=== PATIENT | male | born 1960 | race Caucasian/White ===

== ENCOUNTER 2018-06-16 00:16 | Observation (INO) ==
--- NOTE | 2018-06-16 00:32 | Emergency Department Note ---
Disposition Clinical Impression: Sedated due to medication Disposition: Admitted As Inpatient Condition: Fair Referrals: NONE,PCP [Primary Care Provider] - Forms: ED Satisfaction Letter, Work/School Release Altered Mental Status HPI - General Chief Complaint: ED General Medical Stated Complaint: responsive only to painful stimuli Time Seen by Provider: 06/16/18 00:17 Source: patient, EMS Mode of arrival: EMS Limitations: altered mental status Nursing Notes Reviewed: Yes Vital Signs Reviewed: Yes - History of Present Illness HPI Narrative: Patient presents to the ED via EMS with decreased level of responsiveness. Per EMS he was found unresponsive by his family lying on his right side on the floor next to the bed. They state that he had his pants only on one leg and a T-shirt on. states things were knocked over on the bedside table but there is no signs of injury found on the patient. EMS reports they rolled him from his right side onto his back and his snoring respirations and his color improved but they could not get him to respond anything other than a deep sternal rub. He was given 4 mg of Narcan intranasally with no significant response any also was exposed to ammonia capsule with only minimal response. They report his pupils were unreactive at 4 mm initially. They could not get the patient to follow commands to do a stroke scale or other additional exam or testing but report patient did seem to become more responsive during transport and would mumble and move when he was touched. Glucose was 121. They started an IV and started an IV fluid bolus. Vital signs have been stable throughout transport. On arrival patient did respond to tactile stimuli. He denied any pain or complaints to me. He denied taking any drugs. He was witnessed to have purposeful movements of all extremities. - Related Data Home Medications Medication Instructions Recorded Confirmed Gabapentin [Gralise] 600 mg PO HS 09/01/16 12/03/17 Levomilnacipran HCl [Fetzima] 40 mg PO DAILY 09/01/16 12/03/17 Levothyroxine Sodium 200 mcg PO DAILY 09/01/16 12/03/17 Melatonin 10 mg PO HS 09/01/16 12/03/17 Naproxen [EC-Naprosyn] 500 mg PO BID 09/01/16 12/03/17 Omeprazole 20 mg PO DAILY 09/01/16 12/03/17 Propranolol HCl 20 mg PO BID 09/01/16 12/03/17 Quetiapine Fumarate [SEROquel] 400 mg PO HS 09/01/16 12/03/17 SUMAtriptan Succinate [Imitrex] 50 mg PO PRN PRN 09/01/16 12/03/17 Temazepam [Restoril] 30 mg PO HS 09/01/16 12/03/17 Tramadol HCl [Ultram] 50 mg PO TID PRN 09/01/16 12/03/17 Zolpidem Tartrate 10 mg PO DAILY 09/01/16 12/03/17 Allergies Allergy/AdvReac Type Severity Reaction Status Date / Time No Known Allergies Allergy Verified 12/03/17 15:41 Limitations: ROS unobtainable due to patients medical condition Past Medical History - Past Medical History Medical history: Reports: non-contributory Psychiatric history: Reports: no psych history - Social History Smoking Status: Never smoker Smokeless Tobacco Status: No Alcohol use: Reports: unknown Drug use: Reports: unknown Physical Exam - General Limitations: altered mental status General appearance: obtunded (slow to respond but does follow commands) - Head Head exam: atraumatic, normocephalic, normal inspection - Eye Eye exam: Present: normal appearance, PERRL, EOMI - ENT ENT exam: normal exam, normal oropharynx, mucous membranes moist, TM's normal bilaterally - Neck Neck exam: Present: normal inspection, trachea midline - Chest Chest inspection: Present: normal inspection, symmetric chest wall rise - Respiratory Respiratory exam: Present: normal lung sounds bilaterally. Absent: respiratory distress - Cardiovascular Cardiovascular exam: Present: regular rate, normal rhythm, normal heart sounds - Abdominal Exam Abdominal exam: Present: soft, Non-Tender. Absent: tenderness, distention, guarding, rebound, rigidity - Extremities Exam Extremities exam: Present: normal inspection, full ROM, normal capillary refill. Absent: tenderness, pedal edema - Neurological Exam Neurological exam: Present: alert, CN II-XII intact. Absent: motor sensory deficit - Expanded Neurological Exam Patient oriented to: Present: person, place Motor strength - LUE: 5/5 Motor strength - RUE: 5/5 Motor strength - LLE: 5/5 Motor strength - RLE: 5/5 Coma Scale Eye Opening: To Voice Coma Scale Motor Response: Obeys Commands Coma Scale Verbal Response: Confused Coma Scale Total: 13 - Psychiatric Psychiatric exam: Present: normal affect, normal mood - Skin Skin exam: Present: warm, dry, intact, normal color Course Course Narrative: Patient presents to the ED with decreased level of unresponsiveness after being found on the floor by his at home. On arrival he does respond to verbal stimuli, will follow simple commands and moves all extremities. Patient is slow to answer questions and appears sedated or drowsy. There is no focal neurologic deficits obvious on exam and vital signs are within normal limits. Will obtain routine lab work, EKG, chest x-ray and head CT as it is unclear whether he may have struck his head or possibly had an acute neurologic event causing him to collapse. I spoke to patient's who states that he was behaving normally throughout the day. He went to his group session at [facility] which she participates in for his history of depression. She states that this evening he had gotten up and gone to bed. She went into the bedroom later to show him some pictures on her phone and he was sitting on the side of the bed but just mumbled when she tried to talk to them. She left the room and states when she went back about 25 minutes later to go to bed herself she found the patient on the floor next to the bed. States she tried to get him up but was not strong enough to get him up on her own and he fell back to the floor. He was breathing but she could not get him to respond to her further and so she called EMS. She states he has not been recently ill. He does not drink, smoke or use drugs to her knowledge. She states he does take naproxen to help him sleep. She does not know any of his regular medications and does not attend his doctor's appointments. She does know that he takes thyroid medication and has high blood pressure. He is not a diabetic to her knowledge. - Reevaluation(s) Reevaluation #1: Laboratory studies are unremarkable including CBC, BMP and troponin. Urinalysis is normal. Urine drug screen is only positive for benzodiazepines. Chest x- ray and head CT were both normal as well. On my reassessment patient opens his eyes to voice and he answers questions properly although he is a little slow to produce his answers. Speech is clear. He has no focal neurologic deficits but does still appear to be rather sedated. He is oriented to name, place and date. He did initially tell me Obama was the president but when I questioned him again he corrected himself to Trump. He does admit to taking more melatonin than usual tonight to try to help himself sleep. He denies any attempts of rena ellis to hurt himself. He does have Restoril on his medication list but he denies taking any more this than usual this evening. He denies any numbness, tingling or weakness anywhere or other complaints, only states he is very tired. Given the patient is still somewhat sedated I feel that he requires continued monitoring until he fully returns to a normal baseline. Patient and family are in agreement with this. I then spoke to the hospitalist client relations specialist, Dr. Hughes, who agreed to accept the patient. Time: 01:52 Vital Signs Temperature 97.2 F L 06/16/18 00:22 Pulse Rate 82 06/16/18 00:22 Respiratory Rate 16 06/16/18 00:22 Blood Pressure 100/74 06/16/18 00:22 O2 Sat by Pulse Oximetry 94 06/16/18 00:22 Temperature 97.2 F L 06/16/18 00:22 Pulse Rate 81 06/16/18 01:04 Respiratory Rate 17 06/16/18 01:04 Blood Pressure 101/76 06/16/18 01:04 O2 Sat by Pulse Oximetry 98 06/16/18 01:04 Oxygen Delivery Oxygen Delivery Room Air Altered Mental Status - Differential Diagnosis Likely: alcoholic intoxication, altered mental status, substance use - Medical Records Medical records reviewed: Yes I reviewed the patient's medical records. - Lab Data Lab results reviewed: Yes I reviewed the patient's lab results. Result diagrams: 06/16/18 00:42 06/16/18 00:42 Lab Results 06/16/18 06/16/18 06/16/18 Range/Units 00:37 00:37 00:42 WBC 9.2 (4.3-11.1) K/mcL RBC 3.65 L (4.19-5.50) M/mcL Hgb 11.5 L (12.9-16.9) g/dL Hct 33.3 L (37.5-50.1) % MCV 91.2 (83.0-100.0) fL MCH 31.5 (28.0-33.3) pg MCHC 34.5 (31.6-35.5) g/dL RDW 12.2 (11.5-14.5) % Plt Count 188 (140-400) K/mcL MPV 9.5 (9.4-12.4) fL Immature Gran % 0.3 (0-4) % Seg Neutrophils % 71.1 % Lymphocytes % 16.8 % Monocytes % 7.7 % Eosinophils % 3.7 % Basophils % 0.4 % Neutrophils # 6.5 (1.6-8.9) K/mcL Lymphocytes # 1.6 (0.6-4.6) K/mcL Monocytes # 0.7 (0.0-1.3) K/mcL Eosinophils # 0.3 (0.0-0.6) K/mcL Basophils # 0.0 (0.0-0.2) K/mcL PT (9.4-12.1) Seconds INR APTT (26.0-36.0) Seconds Sodium (136-145) mEq/L Potassium (3.5-5.1) mEq/L Chloride (98-107) mEq/L Carbon Dioxide (23-29) mEq/L BUN (6-20) mg/dL Creatinine (0.70-1.30) mg/dL Est GFR ( Amer) (> 60) Est GFR (Non-Af Amer) (> 60) BUN/Creatinine Ratio (6-26) Glucose (70-105) mg/dL Calculated Osmolality (280-300) Calcium (8.6-10.3) mg/dL Total Bilirubin (0.3-1.0) mg/dL Direct Bilirubin (0.0-0.2) mg/dL Indirect Bilirubin (0.0-1.2) mg/dL AST (13-39) Units/L ALT (7-52) Units/L Alkaline Phosphatase (34-104) Units/L Troponin I (< 0.04) ng/mL Serum Total Protein (6.4-8.9) g/dL Albumin (3.5-5.7) g/dL Globulin (2.4-3.5) g/dL Albumin/Globulin Ratio (1.1-2.2) TSH (0.340-5.600) mcIU/mL Urine Color Yellow (Yellow) Urine Clarity Clear (Clear) Urine pH 5.5 (5.0-8.0) pH Units Ur Specific [place] >= 1.030 H (1.010-1.025) Urine Protein Negative (Neg-Trace) mg/dL Urine Glucose (UA) Normal (Normal) mg/dL Urine Ketones Negative (Negative) mg/dL Urine Blood Negative (Negative) Urine Nitrite Negative (Negative) Urine Bilirubin Negative (Negative) Urine Urobilinogen Normal (Normal) mg/dL Ur Leukocyte Esterase Negative (Negative) Ur Culture Indicated? NO (NO) Urine Opiates Screen Negative (Wbrbmj=425) ng/mL Ur Oxycodone Screen Negative (Cutoff= 100) ng/mL Ur Barbiturates Screen Negative (Qqlxiz=094) ng/mL Ur Phencyclidine Scrn Negative (Cutoff=25) ng/mL Ur Amphetamines Screen Negative (Hlcifs=5675) ng/mL U Benzodiazepines Scrn Positive H (Cvfqrm=006) ng/mL Urine Cocaine Screen Negative (Cutoff= 300) ng/mL U Marijuana (THC) Screen Negative (Cutoff = 50) ng/mL Ur Drug Screen Interp See Below Ethyl Alcohol (Less than 10) mg/dL 06/16/18 06/16/18 Range/Units 00:42 00:42 WBC (4.3-11.1) K/mcL RBC (4.19-5.50) M/mcL Hgb (12.9-16.9) g/dL Hct (37.5-50.1) % MCV (83.0-100.0) fL MCH (28.0-33.3) pg MCHC (31.6-35.5) g/dL RDW (11.5-14.5) % Plt Count (140-400) K/mcL MPV (9.4-12.4) fL Immature Gran % (0-4) % Seg Neutrophils % % Lymphocytes % % Monocytes % % Eosinophils % % Basophils % % Neutrophils # (1.6-8.9) K/mcL Lymphocytes # (0.6-4.6) K/mcL Monocytes # (0.0-1.3) K/mcL Eosinophils # (0.0-0.6) K/mcL Basophils # (0.0-0.2) K/mcL PT 12.1 (9.4-12.1) Seconds INR 1.1 APTT 31.5 (26.0-36.0) Seconds Sodium 136 (136-145) mEq/L Potassium 4.4 (3.5-5.1) mEq/L Chloride 106 (98-107) mEq/L Carbon Dioxide 23 (23-29) mEq/L BUN 22 H (6-20) mg/dL Creatinine 1.27 (0.70-1.30) mg/dL Est GFR ( Amer) > 60 (> 60) Est GFR (Non-Af Amer) 58 L (> 60) BUN/Creatinine Ratio 17 (6-26) Glucose 107 H (70-105) mg/dL Calculated Osmolality 286 (280-300) Calcium 8.9 (8.6-10.3) mg/dL Total Bilirubin 0.4 (0.3-1.0) mg/dL Direct Bilirubin 0.1 (0.0-0.2) mg/dL Indirect Bilirubin 0.3 (0.0-1.2) mg/dL AST 17 (13-39) Units/L ALT 17 (7-52) Units/L Alkaline Phosphatase 121 H (34-104) Units/L Troponin I < 0.03 (< 0.04) ng/mL Serum Total Protein 6.3 L (6.4-8.9) g/dL Albumin 3.6 (3.5-5.7) g/dL Globulin 2.7 (2.4-3.5) g/dL Albumin/Globulin Ratio 1.3 (1.1-2.2) TSH 32.022 H (0.340-5.600) mcIU/mL Urine Color (Yellow) Urine Clarity (Clear) Urine pH (5.0-8.0) pH Units Ur Specific [place] (1.010-1.025) Urine Protein (Neg-Trace) mg/dL Urine Glucose (UA) (Normal) mg/dL Urine Ketones (Negative) mg/dL Urine Blood (Negative) Urine Nitrite (Negative) Urine Bilirubin (Negative) Urine Urobilinogen (Normal) mg/dL Ur Leukocyte Esterase (Negative) Ur Culture Indicated? (NO) Urine Opiates Screen (Vuqytd=271) ng/mL Ur Oxycodone Screen (Cutoff= 100) ng/mL Ur Barbiturates Screen (Vnuril=708) ng/mL Ur Phencyclidine Scrn (Cutoff=25) ng/mL Ur Amphetamines Screen (Ygeokv=0522) ng/mL U Benzodiazepines Scrn (Pjuiep=223) ng/mL Urine Cocaine Screen (Cutoff= 300) ng/mL U Marijuana (THC) Screen (Cutoff = 50) ng/mL Ur Drug Screen Interp Ethyl Alcohol < 10 (Less than 10) mg/dL - Radiology Data Radiology results reviewed: Yes I reviewed the patient's radiology results. ITS Impressions Chest X-Ray 06/16/18 00:33 IMPRESSION: No acute cardiopulmonary findings. Shallow inspiratory effort with basilar atelectasis. Gas-filled loops of bowel partially imaged. Consider abdominal series radiographs. D/ / Raghavendra Gómez / Raghavendra Gómez Interpreting Provider: Raghavendra Gómez Head CT 06/16/18 00:33 IMPRESSION: No acute intracranial abnormality. D/ / Raghavendra Gómez / Raghavendra Gómez Interpreting Provider: Raghavendra Gómez - EKG Data EKG shows normal: sinus rhythm Rate: normal Rhythm: NSR [place]/QRS: normal Heart block present: 1st Degree Interpretation: no acute changes TPA Checklist - LKW: 3-4.5 hrs Add. Warnings/Precautions Patient/family understanding: The patient/family members have been counseled and understood the risk, benefit, and alternatives of treatment. Critical Care Time Critical Care Time: Yes Total Critical Care Time: 20 Attestation: The high probability of a clinically significant, sudden or life threatening deterioration of the [neurologic, cardiovascular, respiratory] system(s) required my full and direct attention, intervention and personal management this patient presented initially attended with decreased level of response this requiring immediate assessment, frequent reassessment and evaluation. The a ggregate critical care time was [20] minutes. This time is in addition to time spent performing reported procedures but includes the following: [x] Data Review and interpretation [x] Patient assessment and monitoring of vital signs [x] Documentation [x] Medication orders and management
[2018-06-16 00:49] LABS: Basophils % 0.4 %; Eosinophils # 0.3 K/mcL (0.0-0.6); Eosinophils % 3.7 %; Hematocrit 33.3 % (37.5-50.1); Hemoglobin 11.5 g/dL (12.9-16.9); Immature Granulocytes % 0.3 % (0-4); Lymphocytes # 1.6 K/mcL (0.6-4.6); Lymphocytes % 16.8 %; Mean Corpuscular HGB Conc 34.5 g/dL (31.6-35.5); Mean Corpuscular Hemoglobin 31.5 pg (28.0-33.3); Mean Corpuscular Volume 91.2 fL (83.0-100.0); Mean Platelet Volume 9.5 fL (9.4-12.4); Monocytes # 0.7 K/mcL (0.0-1.3); Monocytes % 7.7 %; Neutrophils # 6.5 K/mcL (1.6-8.9); Platelet Count 188 K/mcL (140-400); Red Blood Count 3.65 M/mcL (4.19-5.50); Red Cell Distribution Width 12.2 % (11.5-14.5); Segmented Neutrophils % 71.1 %
[2018-06-16 00:54] LABS: Bilirubin,Urine Negative (Negative); Blood,Urine Negative (Negative); Clarity,Urine Clear (Clear); Color,Urine Yellow (Yellow); Glucose,Urine (UA) Normal (Normal); Ketones,Urine Negative (Negative); Leukocyte Esterase,Urine Negative (Negative); Nitrite,Urine Negative (Negative); PH,Urine 5.5 pH Units (5.0-8.0); Protein,Urine Negative (Neg-Trace); Specific Gravity,Urine >= 1.030 (1.010-1.025); Urobilinogen,Urine Normal (Normal)
[2018-06-16 00:57] LABS: INR 1.1; Prothrombin Time 12.1 Seconds (9.4-12.1)
[2018-06-16 01:00] LABS: Activated Partial Thrombo Time 31.5 Seconds (26.0-36.0)
[2018-06-16 01:09] LABS: Troponin I < 0.03 ng/mL (< 0.04)
[2018-06-16 01:13] LABS: Amphetamine Screen,Urine Negative ng/mL (Cutoff=1000); Barbiturate Screen,Urine Negative ng/mL (Cutoff=200); Benzodiazepines Screen,Urine Positive ng/mL (Cutoff=200); Cannabinoid Screen,Urine Negative ng/mL (Cutoff = 50); Cocaine Screen,Urine Negative ng/mL (Cutoff= 300); Opiate Screen,Urine Negative ng/mL (Cutoff=300); Phencyclidine Screen,Urine Negative ng/mL (Cutoff=25)
[2018-06-16 01:25] LABS: Alanine Aminotransferase 17 Units/L (7-52); Albumin 3.6 g/dL (3.5-5.7); Albumin/Globulin Ratio 1.3 (1.1-2.2); Alkaline Phosphatase 121 Units/L (34-104); Aspartate Amino Transferase 17 Units/L (13-39); BUN/Creatinine Ratio 17 (6-26); Bilirubin,Direct 0.1 mg/dL (0.0-0.2); Bilirubin,Indirect 0.3 mg/dL (0.0-1.2); Bilirubin,Total 0.4 mg/dL (0.3-1.0); Blood Urea Nitrogen 22 mg/dL (6-20); Calcium 8.9 mg/dL (8.6-10.3); Carbon Dioxide 23 mEq/L (23-29); Chloride 106 mEq/L (98-107); Ethanol < 10 mg/dL (Less than 10); Globulin 2.7 g/dL (2.4-3.5); Glucose 107 mg/dL (70-105); Osmolality,Calculated 286 (280-300); Potassium 4.4 mEq/L (3.5-5.1); Sodium 136 mEq/L (136-145); Thyroid Stimulating Hormone 32.022 mcIU/mL (0.340-5.600); Total Protein 6.3 g/dL (6.4-8.9); eGFR For Non-African Americans 58 (> 60)
[2018-06-16] MEDS ORDERED: Naloxone 0.4 MG/ML INJ IVP PRN ×2 (01:55→02:25)
[2018-06-16] MEDS ORDERED: 0.9 % Sodium Chloride 1,000 ML IVC SCH (02:00)
[2018-06-16] MEDS: 0.9 % Sodium Chloride 1,000 ML IVC SCH ×2 (03:03→16:09)
[2018-06-16] MEDS ORDERED: Temazepam 15 MG CAPSULE PO PRN (15:17)
--- NOTE | 2018-06-16 15:23 | Internal Med History&Physical ---
Date of Encounter: 06/16/18 Time of Encounter: 14:55 Assessment and Plan (1) Syncope Current visit: Yes Status: Acute Etiology uncertain. He will remain on telemetry. Orthostatic vital signs will be done before discharge. Qualifiers: Syncope type: unspecified Qualified Code(s): R55 - Syncope and collapse (2) Anemia Current visit: Yes Status: Acute Anemia testing will be ordered in a.m. Qualifiers: Anemia type: unspecified type Qualified Code(s): D64.9 - Anemia, un specified (3) Azotemia Current visit: Yes Status: Acute He has been on Naprosyn twice a day at home. This will be discontinued. IV fluids will be given and labs rechecked in a.m. (4) Hypothyroidism Current visit: Yes Status: Acute TSH significantly elevated at 32.022. He denies missing Synthroid dose is at home however his home dose is uncertain. He will be given 250 g daily and labs will be monitored. Qualifiers: Hypothyroidism type: unspecified Qualified Code(s): E03.9 - Hypothyroidism, unspecified Internal Medicine - H&P: HPI Chief complaint: Syncope Admitted From: Emergency Dept Plans for Post Hospital Care: Home History of present illness: Mr. Amanda is a 58 year old male who was brought to emergency room after he was found by his lying on the floor beside his bed at home approximately 10:20 PM. He does not recall the fall from the bed to the floor. He denies significant injury. He was brought to emergency room and evaluated and admitted to [facility] for ongoing care needs. He is a fair historian and does not remember some details of his history. He states he has had occasional episodes of near syncope but does not recall the most recent one. He denies large distribution strokes or seizures. Cardiovascular history is pertinent for hypertension. He denies NE heart failure angina DVT or pulmonary embolus. Past Med Surg Social Fam HX - Past Medical History Medical history: non-contributory Additional medical history: insomnia Psychiatric history: no psych history - Past Surgical History Surgical History: orthopedic, other - Social History Smoking Status: Never smoker Smokeless Tobacco Status: No Alcohol use: none Drug use: none - Family History Father Hx Family Cardiac Disorders: Yes Hx Family Respiratory Disorders: Yes Internal Medicine - H&P: Meds Gabapentin [Gralise] 600 mg PO HS 09/01/16 [History] Levomilnacipran HCl [Fetzima] 40 mg PO DAILY 09/01/16 [History] Levothyroxine Sodium 200 mcg PO DAILY 09/01/16 [History] Melatonin 10 mg PO HS 09/01/16 [History] Naproxen [EC-Naprosyn] 500 mg PO BID 09/01/16 [History] Omeprazole 20 mg PO DAILY 09/01/16 [History] Propranolol HCl 20 mg PO BID 09/01/16 [History] Quetiapine Fumarate [SEROquel] 400 mg PO HS 09/01/16 [History] SUMAtriptan Succinate [Imitrex] 50 mg PO PRN PRN 09/01/16 [History] Temazepam [Restoril] 30 mg PO HS 09/01/16 [History] Allergy/AdvReac Type Severity Reaction Status Date / Time No Known Allergies Allergy Verified 12/03/17 15:41 All Systems PM: A 10-system review of systems was performed and is negative for pertinent findings except as documented above in the HPI. Review of systems: Gen.: He states his weight has been stable for several months Cardiovascular: As per history of present illness Respiratory: He is a lifelong nonsmoker denies chronic lung disease GI: He denies disorders of his liver gallbladder or exocrine pancreas : He has had a kidney stone in the past requiring "laser" intervention. He has had occasional UTIs. He denies known chronic kidney disease. Neurologic: He has occasional migraine headaches. He denies large distribution strokes or seizures. Endocrine: He has hypothyroidism. He thinks he has hyperlipidemia but does not know if he is on medication for this. He denies diabetes. Hematology/oncology: He reports being diagnosed with anemia in the past but does not know details. He denies internal malignancies or other blood disorders. Psychiatric: He reports a diagnosis of bipolar disorder. He denies other mental health issues. [place] skeletal: He has had back surgery for degenerative disc disease. He has DJD but denies gout or other bone joint or muscle disorders. - Constitutional Vitals: Temp Pulse Resp BP Pulse Ox 98.4 F 116 18 135/85 99 06/16/18 14:48 06/16/18 14:48 06/16/18 14:48 06/16/18 14:48 06/16/18 14:48 Exam: Gen.: He is a well-developed well-nourished male sitting on the side of bed who appears in no acute distress HEENT: Head is atraumatic and normocephalic. Eyes: EOMI. There is no scleral icterus. Mouth: Mucosa is moist. Neck: Supple and nontender. There is no thyromegaly or adenopathy noted. Heart: Tachycardic with rate approximately 112 minute at rest. No murmurs or gallops are heard. Lungs: No wheezes or crackles are heard. Abdomen: Nontender to palpation. Exam is limited because he is in the seated position. Extremities: His feet are cool to touch. There is slight dependent rubor bilate rally slightly more on the left than the right. There is 0-trace edema present. Neurologic: Mental status: He is talkative and a good historian. Cranial nerves: Smile is symmetric. Forehead wrinkles bilaterally. Tongue protrudes midline. EOMI. Motor: There is no pronator drift. Cerebellar: Finger to nose is intact bilaterally. Skin: Warm and dry Internal Med - H&P Results - Labs CBC & Chem 7: 06/16/18 00:42 06/16/18 00:42 Labs: Short CBC 06/16/18 Range/Units 00:42 WBC 9.2 (4.3-11.1) K/mcL Hgb 11.5 L (12.9-16.9) g/dL Hct 33.3 L (37.5-50.1) % Plt Count 188 (140-400) K/mcL Neutrophils # 6.5 (1.6-8.9) K/mcL BMP 06/16/18 00:42 Sodium 136 Potassium 4.4 Chloride 106 Carbon Dioxide 23 BUN 22 H Creatinine 1.27 Glucose 107 H Calcium 8.9 Cardiac Enzymes 06/16/18 Range/Units 00:42 Troponin I < 0.03 (< 0.04) ng/mL Liver Function 06/16/18 Range/Units 00:42 Total Bilirubin 0.4 (0.3-1.0) mg/dL Direct Bilirubin 0.1 (0.0-0.2) mg/dL AST 17 (13-39) Units/L ALT 17 (7-52) Units/L Alkaline Phosphatase 121 H (34-104) Units/L Albumin 3.6 (3.5-5.7) g/dL Urine 06/16/18 Range/Units 00:37 Urine Color Yellow (Yellow) Urine Clarity Clear (Clear) Urine pH 5.5 (5.0-8.0) pH Units Ur Specific [place] >= 1.030 H (1.010-1.025) Urine Protein Negative (Neg-Trace) mg/dL Urine Glucose (UA) Normal (Normal) mg/dL - Impressions ITS Impressions Chest X-Ray 06/16/18 00:33 IMPRESSION: No acute cardiopulmonary findings. Shallow inspiratory effort with basilar atelectasis. Gas-filled loops of bowel partially imaged. Consider abdominal series radiographs. D/ / Raghavendra Gómez / Raghavendra Gómez Interpreting Provider: Raghavendra Gómez Head CT 06/16/18 00:33 IMPRESSION: No acute intracranial abnormality. D/ / Raghavendra Gómez / Raghavendra Gómez Interpreting Provider: Raghavendra Gómez - VTE Reasons for not Prescribing Prophylaxis: Treatment not Indicated - Low risk for VTE
--- NOTE | 2018-06-16 20:42 | Electrocardiograph Report ---
[place] [id number] Test Date: 2018-06-16 Pat Name: Schuyler Amanda Department: EDP-16 Room: [facility] Gender: M Political Aide: : 1960 Requested By: Betzaida Toth Order Number: [id number] Reading MD: Zarina Roa Measurements Intervals [place] Rate: 82 P: 68 FL: 215 QRS: 42 QRSD: 109 T: 10 QT: 414 QTc: 484 Interpretive Statements Sinus rhythm Prolonged FL interval Borderline T wave abnormalities Borderline prolonged QT interval Electronically Signed On 06-16-2018 20:40:29 EST by Zarina Roa
[2018-06-16] MEDS ORDERED: Gabapentin 300 MG CAPSULE PO SCH (21:00)
[2018-06-16] MEDS ORDERED: Melatonin 3 MG TABLET PO SCH (21:00)
[2018-06-17 06:00] LABS: Basophils # 0.1 K/mcL (0.0-0.2); Basophils % 1.1 %; Eosinophils # 0.3 K/mcL (0.0-0.6); Eosinophils % 6.9 %; Hematocrit 35.1 % (37.5-50.1); Hemoglobin 12.2 g/dL (12.9-16.9); Immature Granulocytes % 0.2 % (0-4); Lymphocytes # 1.6 K/mcL (0.6-4.6); Lymphocytes % 35.3 %; Mean Corpuscular HGB Conc 34.8 g/dL (31.6-35.5); Mean Corpuscular Hemoglobin 31.8 pg (28.0-33.3); Mean Corpuscular Volume 91.4 fL (83.0-100.0); Mean Platelet Volume 9.5 fL (9.4-12.4); Monocytes # 0.4 K/mcL (0.0-1.3); Monocytes % 9.5 %; Neutrophils # 2.2 K/mcL (1.6-8.9); Platelet Count 197 K/mcL (140-400); Red Blood Count 3.84 M/mcL (4.19-5.50); Red Cell Distribution Width 12.3 % (11.5-14.5)
[2018-06-17 06:25] LABS: BUN/Creatinine Ratio 14 (6-26); Blood Urea Nitrogen 14 mg/dL (6-20); Calcium 9.3 mg/dL (8.6-10.3); Carbon Dioxide 20 mEq/L (23-29); Chloride 109 mEq/L (98-107); Glucose 98 mg/dL (70-105); Osmolality,Calculated 286 (280-300); Potassium 4.1 mEq/L (3.5-5.1); Sodium 138 mEq/L (136-145); eGFR For Non-African Americans > 60 (> 60)
[2018-06-17 06:37] VITALS: BP 126/86
[2018-06-17 08:44] LABS: % Iron Saturation 31 % (20-55); Iron 98 mcg/dL (65-175); Transferrin 225 mg/dL (203-362)
[2018-06-17 09:04] LABS: Ferritin 61 ng/mL (20-250)
[2018-06-17 09:10] LABS: Folate 19.1 ng/mL (3.0-16.0)
--- NOTE | 2018-06-17 09:46 | Discharge Summary ---
Date of Encounter: 06/17/18 Time of Encounter: 09:38 - Discharge Diagnosis (1) Syncope Priority: Primary Status: Acute Qualifiers: Syncope type: unspecified Qualified Code(s): R55 - Syncope and collapse (2) Anemia Priority: Secondary Status: Acute Qualifiers: Anemia type: unspecified type Qualified Code(s): D64.9 - Anemia, unspecified (3) Azotemia Priority: Secondary Status: Resolved (4) Hypothyroidism Priority: Secondary Status: Acute Qualifiers: Hypothyroidism type: unspecified Qualified Code(s): E03.9 - Hypothyroidism, unspecified Hospital course: Mr. Amanda is a 58 year old male who was brought to emergency room after he was found by his lying on the floor beside his bed at home approximately 10:20 PM. He does not recall the fall from the bed to the floor. He denies significant injury. He was brought to emergency room and evaluated and admitted to [facility] for ongoing care needs. Initial orders were written by the emergency room physician. I saw him on June 16 and performed the history and physical. He had no further syncopal or near-syncopal episodes. His vital signs remained stable and orthostatic vital signs did not show significant change. The etiology of his syncope and fall at home was not determined with certainty. Anemia testing on June 17 showed hemoglobin improved to 12.8, iron 98, transferrin saturation 31, transferrin 225, ferritin 61, B12 271, and folate 19.1. His PCP can monitor this. TSH in emergency room returned significantly elevated at 32.022. His home dose of Synthroid was uncertain. His PCP can further address and adjust Synthroid dose as needed. IV fluids were given and Naprosyn was held. BUN and creatinine normalized to 14 and 0.99 respectively with estimated GFR grater than 60 on day of discharge. I encouraged him to remain off Naprosyn to avoid worsening renal function. On June 17 he felt stable for discharge home. He will follow with his PCP Arianne Ortega CNP within 1 week. - Time Spent with Patient Total time spent providing and/or coordinating discharge services: - Discharge Medications Home Medications: Gabapentin [Gralise] 600 mg PO HS 09/01/16 [History] Levomilnacipran HCl [Fetzima] 40 mg PO DAILY 09/01/16 [History] Levothyroxine Sodium 200 mcg PO DAILY 09/01/16 [History] Melatonin 10 mg PO HS 09/01/16 [History] Omeprazole 20 mg PO DAILY 09/01/16 [History] Propranolol HCl 20 mg PO BID 09/01/16 [History] Quetiapine Fumarate [Seroquel] 400 mg PO HS 09/01/16 [History] SUMAtriptan Succinate [Imitrex] 50 mg PO PRN PRN 09/01/16 [History] Temazepam [Restoril] 30 mg PO HS 09/01/16 [History] Allergies/Adverse Reactions: Allergy/AdvReac Type Severity Reaction Status Date / Time No Known Allergies Allergy Verified 12/03/17 15:41 Date of admission: 06/16/18 02:12 Primary care physician: Arianne Ortega [employer] - Constitutional Vitals: Temp Pulse Resp BP Pulse Ox 98.4 F 86 18 126/86 98 06/17/18 06:27 06/17/18 06:37 06/17/18 06:27 06/17/18 06:37 06/17/18 06:27 - Patient Status Disposition: Home, Self-Care Condition: Fair - Discharge Instructions Follow Up With: NONE,PCP [Primary Care Provider] - 1 week - Diet and Activity Activity: resume usual activities as tolerated Diet: advance to your usual diet - VTE Reasons for not Prescribing Prophylaxis: Treatment not Indicated - Low risk for VTE
== END 2018-06-17 11:05 | disposition home or self-care (01) ==
LOC: INPPIK 00:16 → EMEROOPIK 00:16 → INTOOBSV 02:12 → OBSVTOIN 02:12 → INPPIK 02:34
PROVIDERS: ADMIT Internal Medicine; ATTEND Internal Medicine